=== PATIENT | male | born 1945 | race Caucasian/White ===

== ENCOUNTER → 2018-02-03 | Outpatient (CLI) | payer MEDICARE ==
[~2018-02-03] VITALS: Ht 190.5 cm; Wt 95.3 kg
[~2018-02-03] MED LIST: REGADENOSON 0.4 MG/5 ML DISP.SYRIN. IV ONE
--- NOTE | 2018-02-03 11:43 | RAD ---
MR#: [id number] Date of Study: 02/03/2018 Ordering Physician: BREEZY DE GUZMAN, Referring Physician: RESHMA MUNSON Tech: Tori Gold NMTCB, ARRT (R) (N) APPROVED REPORT Test Type: Pharmacological Stress Nurse/Tech: Vidhi Shea RN Test Indications: Syncope Cardiac History: No known cardiac Medications: See Electronic Medical Record Medical History: See Electronic Medical Record Resting ECG: SB with BBB Resting Heart Rate: 57 bpm Resting Blood Pressure: 150/80mmHg Pretest Chest Pain: No chest pain Nurse/Tech Notes S1,S2 and lungs are clear to auscultation. Consent: The procedure was explained to the patient in lay terms. Informed consent was witnessed. Seun eout was entered into [facility]. History and Stress Test performed by [facility]. Details Pharmacologic stress testing was performed using 0.4mg per 5ml of regadenoson given intravenously ove r 7-10 seconds. Stress Symptoms Dyspnea, chest tightness Chest pain typical of angina occurred (Severity 4/10 , 2 min duration). POST EXERCISE Reason for Termination: Infusion complete Target HR: No Max HR: 87 bpm Max Blood Pressure: 164/74mmHg Blood Pressure response to exercise: Normal blood pressure response during stress. Heart Rate response to exercise: WNL Chest Pain: Yes. see above note Arrhythmia: No. ST Change: Yes. INTERPRETATION Stress EKG Conclusion: NO EVIDENCE OF STRESS INDUCED EKG CHANGES Imaging Protocol IMAGE PROTOCOL: Rest Tc-99m/stress Tc-99m 1 day Rest: Stress: Viability: Radiopharm.Tc99m [id number] Sestamibi Dose11.8mCi 33mCi Duration 17min. 15min. Img Date 02/03/2018 02/03/2018 Inj-Img Twza71gis. 60min. Rest Admin Site:IV - Right AntecubitalAdministrator:LIANET Gold Stress Admin Site: IV - Right AntecubitalAdministrator: MART Luis, ARRT (R)(N) STRESS DATA End Diast. Vol.128.0mlLVEDV index BSA57.0ml End Syst. Vol.47.0mlLVESV index BSA21.0ml Myocardial Jjap363.0gEject. Qipnfcwv64.0% Stress Scores Regional WT0.00Summed WT6.00 Regional WM0.00Summed WM5.00 LV Perfusion There is a large sized, severe in intensity FIXED inferior wall defect, most consistent with attenuat ion artifact. Cannot rule out prior infarct but less likely Wall Motion Normal wall motion. LV Perf. Quant 17 Seg. SSS6.00 17 Seg. SRS5.00 17 Seg. SDS1.00 Stress Defect Extent (% LAD)0.00Rest Defect Extent (% LAD)0.00Rev. Defect Extent (% LAD)0.00 Stress Defect Extent (% LCX) 12.50Rest Defect Extent (% LCX)12.50Rev. Defect Extent (% LCX)0.00 Stress Defect Extent (% RCA)28.90Rest Defect Extent (% RCA)13.30Rev. Defect Extent (% RCA)6.70 Stress Defect Extent (% SHANNEN)12.40Rest Defect Extent (% SHANNEN)9.10Rev. Defect Extent (% SHANNEN)1.30 Other Information Quality:Good Risk Assessment: Low Risk Conclusion 1. No stress induced EKG changes. 2. There is a large sized, severe in intensity FIXED inferior wall defect, most consistent with atten uation artifact. Cannot rule out prior infarct but less likely 3. Normal EF at > 65% 4. Low risk study Signed by : Joon Macario, Electronically Approved : 02/03/2018 11:42:53
== END | disposition home or self-care (01) ==
LOC: NM 13:14
PROVIDERS: ATTEND Family Medicine
DX: R55 Syncope and collapse (principal); R42 Dizziness and giddiness; R07.9 Chest pain, unspecified
CPT/HCPCS: 78452; 93017; 96374; 96375; 96376; A9500; J2785

== ENCOUNTER → 2018-02-14 | Outpatient (CLI) | payer MEDICARE ==
--- NOTE | 2018-02-18 17:18 | CARD ---
MR#: [id number] Date of Study: 02/14/2018 Ordering Physician: BREEZY DE GUZMAN, Referring Physician: BREEZY DE GUZMAN, Tech: Torri Ambriz APPROVED REPORT EXAM: Two-dimensional and M-mode echocardiogram with Doppler and color Doppler. Other Information Quality : GoodHR: 57bpm INDICATION Syncope Dizziness 2D DIMENSIONS RVDd3.2 (2.9-3.5cm)Left Atrium(2D)3.7 (1.6-4.0cm) IVSd1.3 (0.7-1.1cm)Aortic Root(2D)3.7 (2.0-3.7cm) LVDd5.2 (3.9-5.9cm)LVOT Diameter2.3 (1.8-2.4cm) PWd1.3 (0.7-1.1cm)LVDs3.7 (2.5-4.0cm) FS (%) 29.0 %SV70.6 ml LVEF(%)55.0 (>50%) Aortic Valve AoV Peak Scar.137.5cm/sAoV VTI27.3cm AO Peak GR.7.6mmHgLVOT Peak Scar.101.5cm/s LVOT VTI 25.00cmAO Mean GR.4mmHg ERNIE (VMAX)2.84im0QZL (VTI)3.87cm2 Pulmonary Valve PV Peak Aqyewjhq14.0cm/sPV Peak Grad.2mmHg Pulmonary Vein S1 Jsvakmtr89.3cm/sD2 Pxebvsym80.7cm/s PVa [id number] LEFT VENTRICLE The left ventricle is normal size. There is borderline to mild concentric left ventricular hypertroph y. The left ventricular systolic function is normal and the ejection fraction is within normal range. The Ejection Fraction is 55%. There is normal LV segmental wall motion. Transmitral Doppler flow pat tern is Grade I-abnormal relaxation pattern. RIGHT VENTRICLE The right ventricle is normal size. There is normal right ventricular wall thickness. The right ventr icular systolic function is normal. ATRIA The left atrium size is normal. The right atrium size is normal. The interatrial septum is intact wit h no evidence for an atrial septal defect or patent foramen ovale as noted on 2-D or Doppler imaging. AORTIC VALVE The aortic valve is normal in structure Doppler and Color Flow revealed trace aortic regurgitation. C alculated aortic valve area is 4 cm2 with maximum pressure gradient of 8 mmHg and mean pressure gradi ent of 4 mmHg. MITRAL VALVE The mitral valve is normal in structure Doppler and Color-flow revealed trace mitral regurgitation. TRICUSPID VALVE The tricuspid valve is not well visualized. Doppler and Color Flow revealed trace tricuspid regurgita tion. PULMONIC VALVE The pulmonic valve is not well visualized. Doppler and Color Flow revealed trace pulmonic valvular re gurgitation. GREAT VESSELS The aortic root is normal in size. The IVC is normal in size and collapses >50% with inspiration. PERICARDIAL EFFUSION There is no evidence of significant pericardial effusion. Critical Notification Critical Value: No <Conclusion> The left ventricular systolic function is normal and the ejection fraction is within normal range. T he Ejection Fraction is 55%. Transmitral Doppler flow pattern is Grade I-abnormal relaxation pattern. The left atrium size is normal. The right atrium size is normal. The aortic valve is normal in structure. Doppler and Color Flow revealed trace aortic regurgitation. Doppler and Color-flow revealed trace mitral regurgitation. Doppler and Color Flow revealed trace tricuspid regurgitation. The pulmonic valve is not well visualized. Doppler and Color Flow revealed trace pulmonic valvular regurgitation. There is no evidence of significant pericardial effusion. Signed by : Salomon Avery MD Electronically Approved : 02/18/2018 17:17:47
== END | disposition home or self-care (01) ==
LOC: EDUNIT# 09:00 → ECHO 09:03
PROVIDERS: ATTEND Family Medicine
DX: I51.7 Cardiomegaly (principal); R55 Syncope and collapse; R42 Dizziness and giddiness
CPT/HCPCS: 93225; 93306